=== PATIENT | male | born 1970 | race Caucasian/White ===

== ENCOUNTER 2020-05-06 00:41 | Emergency (ER) | payer BC ==
[2020-05-06] MEDS ORDERED: SODIUM CHLORIDE 0.9% 1000ML 1,000 ML IVS ONE (00:45)
--- NOTE | 2020-05-06 00:56 | ED.PDOC ---
History of Present Illness - General Time Seen by Provider: 05/06/20 00:44 - History of Present Illness Initial Comments: PATIENT APPARENTLY DRINKING ETOH ALL DAY AND BECAME NON-RESPONSIVE AT A [place] [employer]. PATIENT MORE ALERT NOW PER EMS AFTER RECEIVING A LITER OF FLUID AND "THIAMINE" IN ROUTE BY EMS. PATIENT ADMITS TO DRINKING MULTIPLE TYPES OF ETOH DRINKS TODAY. PATIENT ALSO HAD EMESIS AT THE [place] AND IN ROUTE PER EMS. PT DENIES ANY HEALTH PROBLEMS, ROUTINE MEDS OR DRUG ALLERGIES. Review of Systems - Review of Systems Unable to Obtain Due To: clinical condition - VERY INTOXICATED Physical Exam - Physical Exam General Appearance: No apparent distress, Lethargic, Well Groomed, Well Hydrated, Well Nourished Neck: non-tender, full range of motion, supple Respiratory: chest non-tender, lungs clear, normal breath sounds Cardiovascular/Chest: normal peripheral pulses, regular rate, rhythm, no edema, no gallop Gastrointestinal/Abdominal: normal bowel sounds, non tender, soft, no organomegaly Neurological: other - INTOXICATED Appearance: disheveled Behavior/Eye Contact/Speech: cooperative, refused to answer - ABOUT QUANTITY OF ETOH CONSUMPTION Thoughts/Hallucinations: normal thought pattern, no apparent hallucination Departure - Departure Clinical Impression: Alcohol intoxication Time of Disposition: 01:45 Disposition: Discharge to Home or Self Care Condition: Good Instructions: Alcohol Use - When Is Drinking a Problem?
[2020-05-06 01:01] VITALS: TEMP 97.5
[2020-05-06 01:35] VITALS: BP 106/76; O2SAT 98
== END 2020-05-06 01:35 | disposition home or self-care (01) ==
LOC: ER 00:41
DX: F10.129 Alcohol abuse with intoxication, unspecified (principal); R41.82 Altered mental status, unspecified; R11.10 Vomiting, unspecified
CPT/HCPCS: 80053; 80320; J7030